=== PATIENT | female | born 1965 | race Caucasian/White ===

== ENCOUNTER → 2021-06-08 | Outpatient (CLI) | payer OTHER | END | disposition home or self-care (01) | DX: R06.02 Shortness of breath (principal); K76.0 Fatty (change of) liver, not elsewhere classified; R16.0 Hepatomegaly, not elsewhere classified; K44.9 Diaphragmatic hernia without obstruction or gangrene; Z85.42 Personal history of malignant neoplasm of other parts of uterus | CPT/HCPCS: 82565; 84520; 71046; 74178; 36415; Q9967 ==